=== PATIENT | female | born 1965 | race Hispanic/Latino ===

== ENCOUNTER 2021-03-05 05:53 | Observation (INO) | payer BC ==
[~2021-03-05 05:53] MED LIST: AMOXICILLIN500 MG PO; ATENOLOL50 MG PO; DOXYCYCL HYC100 MG PO; FLAGYL500 MG PO; LORTAB5 PO; LOVASTATIN40 M1 PO; NAPROSYN500 MG PO; PERI-COLACE1 TAB PO
--- NOTE | 2021-03-05 06:00 | NUR ---
TO ROOM VIA W/C FOR TRIAGE.
--- NOTE | 2021-03-05 06:43 | NUR ---
Reassessment of patient completed. No distress noted.
[2021-03-05 06:57] LABS: IMMATURE GRANULOCYTES 0.9 % (0.0-5.0); MEAN CELL VOLUME 92.9 fL CALC (80.0-100.0); MEAN CORPUSCULAR HGB 30.4 pG CALC (26.0-32.0); MEAN CORPUSCULAR HGB CONC 32.7 g/dL CAL (32.0-36.0); NEUT# 21.18 thou/uL (2.00-7.15); RED BLOOD COUNT 5.39 mill/uL (4.20-5.60); RED CELL DISTRI WIDTH 12.9 % (11.5-15.5)
[2021-03-05 06:57] LABS: URINE BILIRUBIN - DIPSTICK NEGATIVE (NEGATIVE); URINE BLOOD DIPSTICK LARGE (NEGATIVE); URINE COLOR YELLOW; URINE GLUCOSE - DIPSTICK NEGATIVE (NEGATIVE); URINE KETONE NEGATIVE (NEGATIVE); URINE PH 5.5 (4.5-8.0); URINE PROTEIN - DIPSTICK 100 mg/dL (NEG-TRACE); URINE SPECIFIC GRAVITY >=1.030; URINE UROBILINOGEN - DIPSTICK 0.2 E.U./dL (0.2)
[2021-03-05 06:58] LABS: HEMATOCRIT 50.1 % (37.0-47.0); HEMOGLOBIN 16.4 g/dl (12.0-16.0)
[2021-03-05 07:09] LABS: URINE LEUK ESTERASE NEGATIVE (NEGATIVE); URINE NITRITE - DIPSTICK NEGATIVE (Negative)
[2021-03-05 07:10] LABS: URINE RBC 25-50 RBC/hpf (0-5)
[2021-03-05 07:11] LABS: URINE BACTERIA MANY hpf; URINE CALCIUM OXALATE CRYSTALS MANY lpf; URINE EPITHELIAL CELLS MANY EPI/hpf (0-FEW)
[2021-03-05 07:11] LABS: ALBUMIN 4.2 g/dL (3.2-5.0); ALKALINE PHOSPHATASE 73 u/l (38-126); AMYLASE 60 u/l (30-110); ANION GAP 16 (6-22 (CALC)); BILIRUBIN, TOTAL 0.5 mg/dL (0.0-1.4); BUN 21 mg/dL (7-17); BUN/CREATININE RATIO 28 (12-20 (CALC)); CHLORIDE 99 mmol/l (95-108); CREATININE 0.8 mg/dL (0.5-1.0); GFR > 60 ML/MIN (>=60 (CALC)); GFR FOR AFR.AMER. > 60 ML/MIN (>=60 (CALC)); POTASSIUM 3.9 mmol/l (3.5-5.1); SGOT/AST 22 u/l (14-36); SODIUM 138 mmol/l (137-146); TOTAL PROTEIN 7.9 g/dL (6.3-8.2)
[2021-03-05 07:17] LABS: CARBON DIOXIDE 27 mmol/l (22-30)
--- NOTE | 2021-03-05 07:55 | NUR ---
RETURNED FROM XRAY, IV FLUIDS RESUMED. RESTING QUIETLY ON STRETCHER.
--- NOTE | 2021-03-05 09:04 | NUR ---
REPORT TO RAKESH
--- NOTE | 2021-03-05 09:12 | NUR ---
TO FLOOR WITH RN IN STABLE CONDITION.
[2021-03-05 09:18] VITALS: BP 151/77
--- NOTE | 2021-03-05 09:18 | NUR ---
REPORT RECEIVED FROM GUICHO IN ED, PT ARRIVED ON UNIT @ 0918 TRANSPORTED VIA STRETCHER. ALERT AND ORIENTED X 4, ORIENTED TO ROOM AND CALL LARSEN, DENIES PAIN AT THIS TIME BUT REPORTED SHE WAS HAVING PAIN EARLIER AND ALSO HAD EPISODE OF DIARRHEA AND VOMITTING, DENIES NAUSEA AT THIS TIME. DARK RED RASH SCATTERED OVER BODY ON BOTH UPPER LEGS, SIDES, BACK AND STOMACH, PT REPORTED SHE DEVELOPED RASH FOR PAST 2 WEEKS WITHOUT PAIN OR ITCHING, WILL CONTINUE TO MONITOR.
[2021-03-05 15:23] VITALS: BP 142/82
--- NOTE | 2021-03-05 18:00 | NUR ---
PT C/O ABD PAIN @ 03/06, REFUSED MORPHINE STATING SHE HAD IT EARLIER AND IT DID NOT RELIEVE HER PAIN BUT TORADOL DID RELIEVE IT. GHADA BRYANT NOTIFIED AND WROTE NEW ORDERS, PT WAS GIVEN MED AND PAIN COMPLETELY RELIEVED, WILL CONTINUE TO MONITOR.
[2021-03-05 18:39] VITALS: BP 147/86
--- NOTE | 2021-03-05 19:10 | NUR ---
REPORT RECEIVED FROM Rima GREEN
--- NOTE | 2021-03-05 21:11 | NUR ---
PATIENT RESTING COMFORTABLY IN BED, PREVIOUSLY MEDICATED BY Rima MILES, PATIENT STATES PAIN HAS COMPLETELY RELIEVED BY TORADOL. PHYSICAL ASSESMENT COMPLETED AT THIS TIME. #20 IN THE RIGHT AC INFUSING PER EMAR ORDER. CLEAR LUNG SOUNDS BILATERALLY . ACTIVE BOWEL SOUNDS. LAST REPORTED BOWEL MOVEMENT PER PATIENT TODAY 04/05/21 CARE PLAN REVIEWED, SAFETY PRECAUTIONS REINFORCED.PATIENT MEDICATED PER EMAR AT THIS TIME.
--- NOTE | 2021-03-06 00:35 | NUR ---
PATIENT RESTING COMFORTABLY IN BED. NO COMPLAINTS OF ABDOMINAL PAIN. BEDISDE TABLE AND CALL LIGHT WITHIN REACH.
[2021-03-06 05:07] VITALS: BP 138/78
--- NOTE | 2021-03-06 05:15 | NUR ---
PATIENT STATES SHE HAD ANOTHER BLOODY BM JUST BEFORE WRITTER WALKED IN, STATES BM WAS BRIGHT RED IN COLOR. WRITTER PLACED COLLECTION HAT IN BATHROOM AND ADVISED TO CALL. DENIES ABDOMINAL PAIN.
[2021-03-06 06:19] LABS: ACT PARTIAL THROMBO TIME 22.8 SECONDS (20.0-32.5); PROTHROMBIN TIME 10.6 SECONDS (9.0-12.5)
[2021-03-06 06:21] LABS: ANION GAP 11 (6-22 (CALC)); BUN 17 mg/dL (7-17); BUN/CREATININE RATIO 25 (12-20 (CALC)); CALCULATED LDLCHOLESTEROL 92 mg/dL (62-129 (CALC)); CARBON DIOXIDE 25 mmol/l (22-30); CHLORIDE 103 mmol/l (95-108); CHOLESTEROL HDL RATIO 3.3 (<4.4 (CALC)); CREATININE 0.7 mg/dL (0.5-1.0); GFR > 60 ML/MIN (>=60 (CALC)); GFR FOR AFR.AMER. > 60 ML/MIN (>=60 (CALC)); HDL CHOLESTEROL 48 mg/dL (>=40); MAGNESIUM 1.8 mg/dL (1.6-2.3); POTASSIUM 4.2 mmol/l (3.5-5.1); SODIUM 134 mmol/l (137-146); TOTAL CHOLESTEROL 158 mg/dl (0-199); TOTAL TRIGLYCERIDES 90 mg/dl (30-149); VLDL CHOLESTROL 18 mg/dl (2-49 (CALC))
[2021-03-06 06:22] LABS: MEAN CELL VOLUME 94.4 fL CALC (80.0-100.0); MEAN CORPUSCULAR HGB 30.7 pG CALC (26.0-32.0); MEAN CORPUSCULAR HGB CONC 32.5 g/dL CAL (32.0-36.0); RED BLOOD COUNT 4.49 mill/uL (4.20-5.60); RED CELL DISTRI WIDTH 13.4 % (11.5-15.5)
[2021-03-06 06:26] LABS: HEMATOCRIT 42.4 % (37.0-47.0); HEMOGLOBIN 13.8 g/dl (12.0-16.0)
[2021-03-06 07:17] VITALS: BP 119/71
--- NOTE | 2021-03-06 07:17 | NUR ---
PT SLEEP UPON ENTERING ROOM. ASSESSMENT AND VITALS COMPLETED. S1 AND S2 HEARD UPON ASCULTATION. LUNG SOUNDS CLEAR. BOWEL SOUNDS ACTIVE IN ALL 4 QUADRANTS. SKIN WARM AND DRY. PEDAL PULSES STRONG BILATERALLY. IV PATENT AND HEALTHY. NO DISTRESS NOTED. PT STATED NO PAIN AT THIS TIME. CALL LIGHT WITHIN REACH.
--- NOTE | 2021-03-06 12:00 | NUR ---
PT IN BED. NO DISTRESS NOTED. CALL LIGHT WITHIN REACH.
[2021-03-06] MEDS ORDERED: METOPROL TAR25 M1 PO (12:54)
[2021-03-06] MEDS ORDERED: ALLERGY RELIEF180 M1 PO (12:54)
[2021-03-06] MEDS ORDERED: MOTRIN800 MG PO (12:56)
[2021-03-06 15:00] VITALS: BP 148/82
--- NOTE | 2021-03-06 16:00 | NUR ---
PT IN BED. NO DISTRESS NOTED. CALL LIGHT WITHIN REACH.
--- NOTE | 2021-03-06 19:00 | NUR ---
REPORT RECEIVED FROM Rima HARRY RN
[2021-03-06 19:41] VITALS: BP 101/59
--- NOTE | 2021-03-06 20:36 | NUR ---
PATIENT RESTING COMFORTABLY IN BED, DENIES ANY PAIN AT THIS TIME, PHYSICAL ASSESMENT COMPLETED AT THIS TIME. #20 IN THE RIGHT AC INFUSING PER EMAR ORDER. CLEAR LUNG SOUNDS BILATERALLY . ACTIVE BOWEL SOUNDS. LAST REPORTED BOWEL MOVEMENT PER PATIENT TODAY 04/06/21 CARE PLAN REVIEWED, SAFETY PRECAUTIONS REINFORCED. MEDICATIONS ADMINISTERED PER EMAR.
[2021-03-06 21:48] LABS: HEMOGLOBIN 12.8 g/dl (12.0-16.0)
--- NOTE | 2021-03-06 23:47 | NUR ---
PATIENT SLEEPING SOUNDLY. IN NO APPARENT DISTRES. CALL LIGTH AND BEDSIDE TABLE WITHIN RECH.
[2021-03-07 05:00] VITALS: BP 137/68
--- NOTE | 2021-03-07 05:25 | NUR ---
PATIENT RESTING COMFORTABLY. BEDSIDE TABLE AND CALL LIGHT WITHIN REACH. PATIENT STATES SHE HAS NO PAIN.
[2021-03-07 06:24] LABS: HEMOGLOBIN 13.1 g/dl (12.0-16.0); MEAN CELL VOLUME 95.3 fL CALC (80.0-100.0); MEAN CORPUSCULAR HGB 30.5 pG CALC (26.0-32.0); RED BLOOD COUNT 4.3 mill/uL (4.20-5.60); RED CELL DISTRI WIDTH 13.7 % (11.5-15.5)
[2021-03-07 06:43] LABS: ANION GAP 11 (6-22 (CALC)); BUN 13 mg/dL (7-17); BUN/CREATININE RATIO 19 (12-20 (CALC)); CARBON DIOXIDE 25 mmol/l (22-30); CHLORIDE 103 mmol/l (95-108); CREATININE 0.7 mg/dL (0.5-1.0); GFR > 60 ML/MIN (>=60 (CALC)); GFR FOR AFR.AMER. > 60 ML/MIN (>=60 (CALC)); POTASSIUM 3.7 mmol/l (3.5-5.1); SODIUM 136 mmol/l (137-146)
[2021-03-07 07:39] VITALS: BP 98/54
--- NOTE | 2021-03-07 07:39 | NUR ---
PT IN BED WHEN ENTERED. PT IS ALERT AND ORIENTED. VITALS AND ASSESSMENT DONE. S1 AND S2 HEARD UPON ASCULTATION. LUNG SOUNDS CLEAR. BOWELS HYPOACTIVE IN ALL 4 QUADRANTS. SKIN WARM AND DRY. PEDAL PULSES STRONG BILATERALLY. IV PATENT AND HEALTHY. PT REPORTED NO PAIN. CALL LIGHT WITHIN REACH.
--- NOTE | 2021-03-07 08:30 | NUR ---
DR. TOLBERT. AT BEDSIDE WITH WRITTER DISCUSSING POC. CALL LIGHT WITHIN REACH.
--- NOTE | 2021-03-07 12:00 | NUR ---
PT IN BED NO DISTRESS NOTED. CALL LIGHT WITHIN REACH.
--- NOTE | 2021-03-07 16:00 | NUR ---
PT IN BED. NO DISTRESS NOTED. CALL LIGHT WITHIN REACH.
[2021-03-07 16:25] VITALS: BP 106/59
[2021-03-07 20:00] VITALS: BP 122/66
--- NOTE | 2021-03-07 20:00 | NUR ---
PATIENT RESTING IN BED AT THIS TIME TALKING ON THE PHONE WITH HER DAUGHTER JONO-DAUGHTER IS ABLE TO TRANSLATE FOR PATIENT, PATIENT IS AWAKE ALERT AND ORIENTEDX3. PATIENT DENIES ANY ABD PAIN AT THIS TIME. STATES THAT SHE DID HAVE LOOSE LIGHT BROWN/YELLOW STOOLS TODAY. NO BLEEDING OR BLACK STOOLS. DENIES ANY DIFFICULTY WITH URINATION. ABD IS SOFT WITH BS+. LUNGS ARE CLEAR. NO PERIPHERAL EDEMA NOTED. PEDAL PULSES ARE PALPABLE. RASH NOTED TO BOTH THIGHS AND LEGS AND LEFT AND RIGHT LOWER BACK AND FLANK. SAFETY PRECAUTIONS REINFORCED. CALL LIGHT IN REACH. WILL CONT TO MONITOR.
--- NOTE | 2021-03-08 | NUR ---
PATIENT RESTING IN BED AT THIS TIME WITH EYES CLOSED POSITIONED ON LEFT SIDE. RESP ARE EVEN AND UNLABORED. CALL LIGHT IN REACH. WILL CONT TO MONITOR.
--- NOTE | 2021-03-08 04:21 | NUR ---
PATIENT RESTING IN B ED WITH EYES CLOSED. RESPS ARE EVEN AND UNLABORED. IVF NS PATENT AND INFUSING VIA RAC ORDERED. CALL LIGHT IN REACH. WILL CONT TO MONITOR.
[2021-03-08 04:50] VITALS: BP 113/66
[2021-03-08 06:57] LABS: ANION GAP 9 (6-22 (CALC)); BUN 14 mg/dL (7-17); BUN/CREATININE RATIO 19 (12-20 (CALC)); CARBON DIOXIDE 27 mmol/l (22-30); CHLORIDE 103 mmol/l (95-108); CREATININE 0.8 mg/dL (0.5-1.0); GFR > 60 ML/MIN (>=60 (CALC)); GFR FOR AFR.AMER. > 60 ML/MIN (>=60 (CALC)); MAGNESIUM 1.9 mg/dL (1.6-2.3); POTASSIUM 3.8 mmol/l (3.5-5.1); SODIUM 136 mmol/l (137-146)
--- NOTE | 2021-03-08 07:00 | NUR ---
RECIEVED REPORT FROM MAINE LEIVA
--- NOTE | 2021-03-08 07:00 | NUR ---
RECIEVED REPORT FROM MAINE GALE
[2021-03-08 07:12] LABS: HEMATOCRIT 37.1 % (37.0-47.0); MEAN CELL VOLUME 94.9 fL CALC (80.0-100.0); MEAN CORPUSCULAR HGB 30.7 pG CALC (26.0-32.0); MEAN CORPUSCULAR HGB CONC 32.3 g/dL CAL (32.0-36.0); RED BLOOD COUNT 3.91 mill/uL (4.20-5.60); RED CELL DISTRI WIDTH 13.5 % (11.5-15.5)
[2021-03-08 07:42] VITALS: BP 119/64
--- NOTE | 2021-03-08 07:42 | NUR ---
PT RESTING IN SEMI FOWLERS POSITION. PT IS A/OX3. ASSESSMENT AND VITALS COMPLETED. REPSIRATIONS ARE EVEN AND UNLABORED WITH NO DISTRESS NOTED. LUNG SOUNDS ARE CLEAR. HEART RHYTHM IS NORMAL. BOWEL SOUNDS ARE ACTIVE. PULSES STRONG. #20G RAC INFUSING WITH IVF PER ORDER, SITE REMAINS HEALTHY AND PATENT.RASHED NOTED FROM WAIST DOWN, PT DENIES ITCHING. PT DENIES OF ANY PAINS OR DISCOMFORTS AT THIS TIME. ALL SAFETY PRECAUTIONS ARE INPLACE WITH CALL LIGHT IN REACH.
[2021-03-08 09:20] VITALS: BP 119/64
--- NOTE | 2021-03-08 09:45 | NUR ---
OBTAINED CONSENT FOR SKIN BIOSY.DAUGHTER ON PHONE TO TRANSLATE.
--- NOTE | 2021-03-08 10:05 | NUR ---
DR TOLBERT AND NETWORK CABLE INSTALLER AT BEDSIDE FOR SKIN BIOPSY.PT TOLERATED WELL. GAUZE TO RLE TAPED, REMAINS CDI.
[2021-03-08] MEDS ORDERED: PROTONIX40 MG PO (11:11)
[2021-03-08] MEDS ORDERED: PREDNISONE20 MG PO (11:14)
[2021-03-08] MEDS ORDERED: OMNICEF300 MG PO (11:15)
--- NOTE | 2021-03-08 11:56 | NUR ---
PT RESTIG IN SEMI FOWLERS POSITION. ESPIRATIONS ARE EVEN AND UNLABORED WITH NO DISTRESS ON ROOM AIR. IVF INFUSING PER ORDER, SITE REMAINS HEALTHY AND PATENT. PT INFORMED OF DC. PT VERBLAIZED UNDERSTANDING. ALL SAFETY PRECAUTIONS ARE IN PLACE WITH CALL LIGHT IN REACH. WILL CONTINUE TO MONITOR.
--- NOTE | 2021-03-08 12:26 | NUR ---
PT EDUCATED ON DC INSTRUCTIONS AND NEW MEDIATIONS. DR TOLBERT CARD GIVEN TO PT. DAUGHTER ON PHONE TO TRANSLATE. IV REMOVED WITH CATH STILL INTACT. ALEKSANDRATER TO BRING CLOTHES.WILL CONTINUE TO MONITOR.
--- NOTE | 2021-03-08 12:40 | NUR ---
Discharge instructions given. Patient verbalizes understanding of same. Discharged in stable condition via Wheelchair to Home with staff. All belongings sent with pt. PT DC HOME IN STABLE CONDITION WITH ALL DC INSTRUCTIONS AND NEW MEDICATIONS.
== END 2021-03-08 13:00 | disposition home or self-care (01) | DRG 372 ==
LOC: ED 05:53 → ED-I 08:10 → ED 08:20 → MS2 08:21
PROVIDERS: Emergency Medicine; Nurse Practitioner; ADMIT Internal Medicine; ATTEND Internal Medicine
PROC: 0HBKXZX Excision of Right Lower Leg Skin, External Approach, Diagnostic (ICD-10-PCS; principal; 2021-03-08)
DX: A04.0 Enteropathogenic Escherichia coli infection (principal); N39.0 Urinary tract infection, site not specified; E87.2 Acidosis; D69.2 Other nonthrombocytopenic purpura; I10 Essential (primary) hypertension; E78.5 Hyperlipidemia, unspecified; B96.20 Unspecified Escherichia coli [E. coli] as the cause of diseases classified elsewhere; Z79.52 Long term (current) use of systemic steroids; Z20.822 Contact with and (suspected) exposure to COVID-19
CPT/HCPCS: G0378; J1650; Q9967; S0164

== ENCOUNTER 2024-07-21 09:31 | Emergency (ER) | payer BC ==
[~2024-07-21] VITALS: Ht 160 cm; Wt 90.7 kg
[~2024-07-21 09:31] MED LIST changes: +ALLERGY RELIEF180 M1 PO; +METOPROL TAR25 M1 PO; +MOTRIN800 MG PO; +OMNICEF300 MG PO; +PREDNISONE20 MG PO; +PROTONIX40 MG PO
[2024-07-21 10:08] LABS: URINE BLOOD DIPSTICK Large (NEGATIVE); URINE GLUCOSE - DIPSTICK 100 mg/dL (NEGATIVE); URINE KETONE 15 mg/dL (NEGATIVE); URINE PROTEIN - DIPSTICK >=300 mg/dL (NEG-TRACE)
[2024-07-21 10:09] LABS: URINE COLOR Red; URINE LEUK ESTERASE Large (NEGATIVE); URINE NITRITE - DIPSTICK Positive (Negative)
[2024-07-21 10:14] LABS: URINE RBC >100 RBC/hpf (0-5)
[2024-07-21 10:15] LABS: URINE BACTERIA FEW hpf; URINE SQUAMOUS EPITHELIAL CELL FEW EPI/hpf (0-FEW)
[2024-07-21] MEDS ORDERED: SULFAMETHOXAZOLE W/TRIMETHOPRI 1 COMBO TAB PO ONE (10:20)
[2024-07-21] MEDS ORDERED: PHENAZOPYRIDINE HCL 100 MG/TAB PO ONE (10:20)
[2024-07-21] MEDS ORDERED: BACTRIM DS1 TAB PO (10:23)
[2024-07-21] MEDS ORDERED: PYRIDIUM200 MG PO (10:23)
[2024-07-21 10:41] VITALS: BP 108/75
== END 2024-07-21 10:41 | disposition home or self-care (01) | DRG 690 ==
LOC: ED 09:31
PROVIDERS: Family Medicine
DX: N39.0 Urinary tract infection, site not specified (principal); I10 Essential (primary) hypertension; E78.00 Pure hypercholesterolemia, unspecified; I45.81 Long QT syndrome; Z86.16 Personal history of COVID-19

== ENCOUNTER 2024-07-27 09:49 | Emergency (ER) | payer BC ==
[~2024-07-27] VITALS: Ht 160 cm; Wt 86.1 kg
[~2024-07-27 09:49] MED LIST changes: +BACTRIM DS1 TAB PO; +PYRIDIUM200 MG PO
[2024-07-27 10:03] VITALS: BP 168/83
[2024-07-27 10:30] LABS: URINE BILIRUBIN - DIPSTICK Negative (NEGATIVE); URINE BLOOD DIPSTICK Small (NEGATIVE); URINE GLUCOSE - DIPSTICK Negative (NEGATIVE); URINE KETONE Negative (NEGATIVE); URINE NITRITE - DIPSTICK Negative (Negative); URINE PH 5.5 (4.5-8.0); URINE PROTEIN - DIPSTICK Trace mg/dL (NEG-TRACE); URINE SPECIFIC GRAVITY >=1.030; URINE UROBILINOGEN - DIPSTICK 0.2 E.U./dL (0.2)
[2024-07-27 10:31] VITALS: BP 132/68
[2024-07-27 10:31] LABS: URINE COLOR Yellow; URINE LEUK ESTERASE Small (NEGATIVE); URINE RBC 0-2 RBC/hpf (0-5)
[2024-07-27 10:32] LABS: URINE BACTERIA FEW hpf; URINE EPITHELIAL CELLS MODERATE EPI/hpf (0-FEW)
[2024-07-27 10:38] LABS: BASO% 0.7 % (0-3); EOS% 3.6 % (0-8); HEMATOCRIT 42.3 % (37.0-47.0); HEMOGLOBIN 13.7 g/dl (12.0-16.0); IMMATURE GRANULOCYTES 0.4 % (0.0-5.0); LYMPH% 31.9 % (15-41); MEAN CELL VOLUME 92.2 fL CALC (80.0-100.0); MEAN CORPUSCULAR HGB 29.8 pG CALC (26.0-32.0); MEAN CORPUSCULAR HGB CONC 32.4 g/dL CAL (32.0-36.0); MONO% 8.9 % (2-13); NEUT# 3.79 thou/uL (2.00-7.15); NEUT% 54.5 % (42-76); RED BLOOD COUNT 4.59 mill/uL (4.20-5.60); RED CELL DISTRI WIDTH 12.7 % (11.5-15.5)
[2024-07-27 10:50] LABS: ALBUMIN 4.6 g/dL (3.2-5.0); BILIRUBIN, TOTAL 0.5 mg/dL (0.02-1.3); CREATININE 1.2 mg/dL (0.5-1.0); POTASSIUM 4.4 mmol/l (3.5-5.1); TOTAL PROTEIN 8.4 g/dL (6.3-8.2)
[2024-07-27 11:01] VITALS: BP 120/92
[2024-07-27 12:04] VITALS: BP 130/63
[2024-07-27] MEDS ORDERED: CEPHALEXIN500 M1 PO (12:14)
[2024-07-27 12:21] VITALS: BP 130/63
[2024-07-29] MEDS ORDERED: OMNICEF300 MG PO ×2 (13:43→13:45)
== END 2024-07-27 12:28 | disposition home or self-care (01) | DRG 690 ==
LOC: ED 09:49
PROVIDERS: Family Medicine
DX: N39.0 Urinary tract infection, site not specified (principal)